=== PATIENT | male | born 1985 | race Caucasian/White ===

== ENCOUNTER 2016-11-04 14:08 | Emergency (ER) | payer BC, OTHER ==
[2016-11-04 14:18] VITALS: BP 143/70; PULSE 76; RESP 19; TEMP 98.2; O2SAT 98; BMI 28.5
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
== END 2016-11-04 14:23 | disposition left against medical advice (07) ==
LOC: ED 14:08
DX: M79.602 Pain in left arm (principal)